=== PATIENT | male | born 1960 | race Caucasian/White ===

== ENCOUNTER 2017-04-01 14:09 | Emergency (ER) | payer BC ==
--- NOTE | ~2017-04-01 | OR ---
PATIENT'S NAME: LIZETT GREGG [facility] AGE: 57 Y [address] ROOM: [place] [address] LOCATION: [facility] ADMIT DATE: 04/01/2017 OR/Procedure Report DISCHARGE DATE: 04/01/2017 FAMILY PHYSICIAN: PHYSICIAN, DUSTIN ATTENDING PHYSICIAN: Catrachito Ag SURGEON: Dewey Thomas MD MECHANICAL ASSEMBLY TECHNICIAN: DATE OF PROCEDURE: 04/01/2017 DIAGNOSES: 1. Open crushing injury to the left index finger tip. 2. Nail bed laceration. 3. Exposed bone. PROCEDURE: 1. Repair of nail bed, left index finger. 2. Irrigation and debride, left index finger. 3. Complete amputation left index finger. ANESTHESIA: Digital block. INDICATIONS: Farm injury, new piece of equipment, nut failed, and the finger was crushed by a spring. His tetanus has been updated. He has received Kefzol IV. DESCRIPTION OF PROCEDURE: In the emergency room, the finger had been soaked in Betadine. It was irrigated with a liter of normal saline. The hand was prepped with Betadine. Digital blocks with plates with lidocaine 10 mL, no epinephrine about the index finger. Good anesthesia. Re-prepped, placed in a sterile glove. Tip of the glove was cut and the glove was rolled upon itself for tourniquet. Necrotic tissue was sharply debrided. The distal portion of the nail bed was excised, it was necrotic. Nail bed was repaired with 4-0 Vicryl simple sutures. Ulnar side flap of soft tissue was brought around to the radial side, held with 4-0 Vicryl subcutaneous sutures and also a 3-0 nylon simple suture. The nail plate was trimmed and cleaned, it was placed as a spacer between the eponychial fold and the nail matrix and held in place with a 2-0 Prolene. All remaining tissue was viable. There was a good pulp of tissue. He will require soak for complete healing. It was covered with Xeroform, tube gauze was placed over the wound and AlumaFoam splint was placed for bumper. The procedure was done without complication. Discharged to home on Keflex and [place]. He will follow up with Dr. Thomas on April 15, 2017 at 9:00 a.m. PATIENT'S NAME: LIZETT GREGG [facility] AGE: 57 Y [address] ROOM: [place] [address] LOCATION: [facility] ADMIT DATE: 04/01/2017 OR/Procedure Report DISCHARGE DATE: 04/01/2017 FAMILY PHYSICIAN: DUSTIN REMY ATTENDING PHYSICIAN: Catrachito Ag DEWEY THOMAS MD DPM/ce /[id number] d: 04/01/172346 t: 04/02/17 1826, OPERATIVE SUMMARY
--- NOTE | ~2017-04-01 | HP ---
PATIENT'S NAME: LIZETT MAI [facility] AGE: 57 Y [address] ROOM: [place] [address] LOCATION: [facility] ADMIT DATE: 04/01/2017 History & Physical DISCHARGE DATE: 04/01/2017 FAMILY PHYSICIAN: PHYSICIAN, NO ATTENDING PHYSICIAN: Catrachito Ag DATE OF SERVICE: 04/01/2017 TIME OF EVALUATION: 3:30 p.m. HISTORY OF PRESENT ILLNESS: Mr. 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 A bolt broke and his right index finger with open crushing injury by a spring. He was initially evaluated at the [facility]. His tetanus was updated and given IV Kefzol. Finger was dressed. Referred to the [facility] for definitive care. MEDICATIONS: See list. ALLERGIES: NONE KNOWN. PAST MEDICAL HISTORY: High cholesterol, hypertension, benign prostatic hypertrophy. SOCIAL HISTORY: Does not smoke. Drinks alcohol occasionally. None today. No drug abuse. REVIEW OF SYSTEMS: As above. FAMILY MEDICAL HISTORY: Remarkable for rheumatologic disorders. 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 PHYSICAL EXAMINATION: GENERAL: White male, in no acute distress. HEENT: Hears and sees. BACK: Nontender. PATIENT'S NAME: LIZETT MAI [facility] AGE: 57 Y [address] ROOM: [place] [address] LOCATION: [facility] ADMIT DATE: 04/01/2017 History & Physical DISCHARGE DATE: 04/01/2017 FAMILY PHYSICIAN: PHYSICIAN, NO ATTENDING PHYSICIAN: Catrachito Ag HEART: Pulse rate is regular. LUNGS: Able to take in a deep breath. ABDOMEN: Soft and nontender. EXTREMITIES: Left hand crushing wound to the tip of the left index finger. Bone is exposed, damage to the nail bed with portion of the nail plate and bed gone. The majority of soft tissue defects were on the volar and radial side. Fingertip is viable. Has had previous digital block placed and there is some numbness of the hand, but good capillary refill. IMAGING STUDIES: X-rays showed degeneration of the DIP joint, but no fracture. ASSESSMENT AND PLAN: For irrigation and debridement, repair of the nail bed and completion of the amputation, risks, benefits and alternatives were discussed. Procedure was performed in the emergency room. Discharged to home on Keflex 500 mg 4 times a day for 3 days, [place] if needed for pain. Can transition to Tylenol. Elevate, ice in 72 hours, will begin dressing changes and soaks and will soak in 2 quarts of lukewarm tap water and 2 teaspoons of table salt for 15 minutes 3 times a day. Scheduled to follow up with Dr. Thomas on 04/15/2017 at 9:00 a.m. YONAS THOMAS MD DPM/ce /[id number] D: [id number] T: [id number] HISTORY & PHYSICAL
--- NOTE | ~2017-04-01 | ER ---
PATIENT'S NAME: LIZETT MAI [facility] AGE: 57 Y [address] ROOM: [place] [address] LOCATION: [facility] ADMIT DATE: 04/01/2017 ER/Outpatient Report DISCHARGE DATE: 04/01/2017 FAMILY PHYSICIAN: PHYSICIAN, NO ATTENDING PHYSICIAN: Catrachito Ag CHIEF COMPLAINT: Mr. Mai had a left index finger injury. HISTORY OF PRESENT ILLNESS: The patient was working on a [employer] door spring and had significant injury. He was seen at an outside hospital at [facility] in [facility], where he received Ancef and a digital block and some pain medication and was transferred here after discussion with Dr. Garcia, orthopedic surgeon to evaluate the injury further. The patient states that he does not know his last tetanus shot, but denies any significant medical allergies. He states they did not do x-rays at that facility. PAST MEDICAL HISTORY: Documented on the record and reviewed by me. SOCIAL HISTORY: Documented on the record and reviewed by me. MEDICATIONS: Documented on the record and reviewed by me. ALLERGIES: DOCUMENTED ON THE RECORD AND REVIEWED BY ME. REVIEW OF SYSTEMS: All systems reviewed and negative except as noted in the HPI. PHYSICAL EXAMINATION: VITAL SIGNS: Blood pressure 141/89, pulse is 79, respiratory rate is 18, temperature 98.3, SpO2 is 96% on room air. Pain 0/10. GENERAL: Age-appropriate male sitting in a bed, in no apparent pain or distress with his finger in a Betadine bath. NEUROLOGIC: Awake and alert. No abnormalities. HEENT: Unremarkable. CHEST: Even and unlabored respirations. HEART: Regular rate and rhythm. No murmurs. Lung sounds are clear. ABDOMEN: Benign. EXTREMITIES: Grossly unremarkable except for the left index finger, which reveals an oblique finger laceration with palpable bone deformity on the PATIENT'S NAME: LIZETT MAI [facility] AGE: 57 Y [address] ROOM: [place] [address] LOCATION: [facility] ADMIT DATE: 04/01/2017 ER/Outpatient Report DISCHARGE DATE: 04/01/2017 FAMILY PHYSICIAN: PHYSICIAN, NO ATTENDING PHYSICIAN: Catrachito Ag radial aspect. Unable to test sensation, still numb from digital block previously. SKIN: Otherwise intact. LABORATORY DATA AND X-RAYS: Plain film of the hand reveal distal tuft fracture of the area in question. IMPRESSION: Left index finger distal phalanx, significant degloving injury with open fracture. EMERGENCY DEPARTMENT COURSE: The patient was seen and evaluated at bedside. Betadine soak was initiated. The patient was hemodynamically stable. Dr. Garcia was in the operating room, so I did facilitate tetanus update and x-rays. Dr. Garcia was able to come see the patient, performed bedside irrigation, debridement, and wound management. Please see his note for details of that. Dr. Garcia was responsible for discharge of the patient. MD RICARDA TOMLINSON/ce /[id number] d: t: 04/01/17 2335, OUTPATIENT REPORT
== END 2017-04-01 17:13 | disposition disaster alternative care site (69) ==
LOC: GACC 14:09
PROC: 0HQQXZZ Repair Finger Nail, External Approach (ICD-10-PCS; principal; 2017-04-01)
PROC: 0X6P0Z0 Detachment at Left Index Finger, Complete, Open Approach (ICD-10-PCS; 2017-04-01)
DX: S62.631B Displaced fracture of distal phalanx of left index finger, initial encounter for open fracture (principal); I10 Essential (primary) hypertension; N40.0 Benign prostatic hyperplasia without lower urinary tract symptoms; Z23 Encounter for immunization; Z88.8 Allergy status to other drugs, medicaments and biological substances; Z79.899 Other long term (current) drug therapy; W22.8XXA Striking against or struck by other objects, initial encounter
CPT/HCPCS: A9270

== ENCOUNTER 2017-04-01 18:36 | Emergency (ER) | payer BC ==
--- NOTE | ~2017-04-01 | ER ---
PATIENT'S NAME: LIZTET GREGG [facility] AGE: 57 Y [address] ROOM: [place] [address] LOCATION: ED ADMIT DATE: 04/01/2017 ER/Outpatient Report DISCHARGE DATE: 04/01/2017 FAMILY PHYSICIAN: PHYSICIAN, NO ATTENDING PHYSICIAN: Jose Luis Reed Time of Arrival: 1836 hours Time of Exam: 1836 hours CHIEF COMPLAINT: Syncopal episode. HISTORY OF PRESENT ILLNESS: The patient was seen here in the ER earlier today for a left index finger injury. He saw Dr. Garcia who did a repair of the finger here in the ER. The patient was feeling fine when he left, stepped at [facility] to get his medications filled. He just states he was very hungry, got some chocolate milk, did drink the milk while he was waiting for his prescriptions to get done, he stood up to get his prescriptions and then passed out. His son did catch him, he did not hit his head on the ground. The son says he was unresponsive for around 30 seconds. He had his eyes open, but did not respond to them. He did not turn blue in color and was continuing to breathe. Upon arrival to the ER, he denies having head pain,. Does not have any chest pain. Has been nauseated, but did not vomit. Does not have any abdominal pain. The only pain is of the finger that was repaired earlier. ALLERGIES: ON HIS CHART AND WERE REVIEWED BY ME. MEDICATIONS: On his chart and were reviewed by me. PAST MEDICAL HISTORY: Hypertension, hypercholesterolemia, BPH. PAST SURGICAL HISTORY: Knee surgery, elbow surgery. SOCIAL HISTORY: He lives in [place], [place]. His son is here with him. He denies use of tobacco or drugs. Drinks alcohol on occasional basis. REVIEW OF SYSTEMS: All negative other than those mentioned in the HPI. PATIENT'S NAME: LIZETT GREGG [facility] AGE: 57 Y [address] ROOM: [place] [address] LOCATION: ED ADMIT DATE: 04/01/2017 ER/Outpatient Report DISCHARGE DATE: 04/01/2017 FAMILY PHYSICIAN: PHYSICIAN, NO ATTENDING PHYSICIAN: Jose Luis Reed PHYSICAL EXAMINATION: VITAL SIGNS: He states he is 5 feet 10 inches. He weighed 78.9 kg. Blood pressure was 101/63, pulse is 70, respirations 18, temperature of 97, O2 sats 98% on room air. GENERAL: He is awake, alert, and oriented x4. SKIN: [place], warm, and dry. RESPIRATIONS: Even and nonlabored. HEENT: Pupils are equal and reactive to light. Extraocular movement is intact. LUNGS: Lung sounds are clear throughout. HEART: Regular rate and rhythm. ABDOMEN: Soft and nondistended. Bowel sounds are present. EXTREMITIES: He moves all extremities strongly and equally. His dressing on his left index finger is intact and dry. EMERGENCY ROOM COURSE: Saline lock was initiated. Fluids of normal saline were started at a wide- open rate. Lab work was completed. CBC is within normal limits. Chem panel is within normal limits. Cardiac biomarkers were negative. ProBNP was 34. EKG shows a sinus rhythm. The patient was monitored. He was given a sandwich to eat along with some chips and pudding. He states he feels much better after he ate. He was given [place] 5/325 x2 tablets p.o. for the finger pain after the fluids were completed and we did check orthostatic blood pressures. Lying down is 101/66, heart rate of 80. Sitting, he is 110/70, heart rate of 89. Standing, he is 108/66, heart rate of 88. He denies being dizzy or lightheaded. IMPRESSION: Syncopal episode. PLAN: Home, rest, fluids. Medication as prescribed. Follow up with his primary provider as directed. He verbalized understanding. DANIELLE WILEY APRN FOR [facility]ES/delroyl /[id number] d: 04/02/17 0025 t: 04/03/172006, OUTPATIENT REPORT
[2017-04-01 19:08] LABS: BASOPHIL % 0.4 %; EOSINOPHIL # 0.2 K/uL (0.0-0.5); EOSINOPHIL % 2.2 %; HEMATOCRIT 46.1 % (37.0-53.0); HEMOGLOBIN 15.8 g/dL (12.0-17.0); IMMATURE GRANULOCYTE % 0.3 %; LYMPHOCYTE # 2.7 K/uL (0.8-4.0); LYMPHOCYTE % 25.4 %; MCH 32.4 pg (27.0-34.0); MCHC 34.3 gm/dL (32.0-36.5); MCV 94.7 fl (83.0-98.0); MONOCYTE # 1.1 K/uL (0.0-1.0); MONOCYTE % 10.4 %; NEUTROPHIL # (ANC) 6.5 K/uL (1.4-9.0); NEUTROPHIL % 61.3 %; NRBC % 0 /100WBC (0-0.00); PLATELET COUNT 241 K/uL (150-450); RBC 4.87 M/uL (4.00-6.00); RDW-CV 12.1 % (11.9-14.6); WBC 10.6 K/uL (4.0-11.0)
[2017-04-01 19:20] LABS: INR - (THERAPEUTIC) 1.05 (0.92-1.07); PTT 26 SECONDS (25-32)
[2017-04-01 19:27] LABS: ALBUMIN 4.1 gm/dL (3.5-5.0); ALK PHOS 82 IU/L (33-138); ALT 26 IU/L (12-78); ANION GAP 12.9 (10.0-19.0); AST 16 IU/L (10-40); BLOOD UREA NITROGEN 18 mg/dL (6-24); CALCIUM 8.6 mg/dL (8.5-10.5); CHLORIDE 108 mMol/L (96-110); CO2 25 mMol/L (22-32); CPK 134 IU/L (35-332); CREATININE 1.1 mg/dL (0.6-1.3); POTASSIUM 3.9 mMol/L (3.7-5.1); SODIUM 142 mMol/L (135-145); TOTAL BILIRUBIN 0.6 mg/dL (0.0-1.5); TOTAL PROTEIN 7.5 g/dL (6.0-8.4)
== END 2017-04-01 20:16 | disposition disaster alternative care site (69) ==
LOC: GMED 18:36
PROVIDERS: Nurse Practitioner Family
DX: R55 Syncope and collapse (principal); I10 Essential (primary) hypertension; E78.00 Pure hypercholesterolemia, unspecified; N40.0 Benign prostatic hyperplasia without lower urinary tract symptoms; Z88.8 Allergy status to other drugs, medicaments and biological substances; Z79.899 Other long term (current) drug therapy; Z98.890 Other specified postprocedural states
CPT/HCPCS: J7030